=== PATIENT | female | born 1950 | race Caucasian/White ===

== ENCOUNTER → 2016-11-04 | Outpatient (CLI) | payer BC ==
[~2016-11-04] MED LIST: ACET65TA; BABY81CH; CAPT12.5; CARV6.25; FURO40TA2; No Historical Meds; ZOCO40TA
[2016-11-04 10:08] LABS: ALBUMIN 3.8 GM/DL (3.2-5.2); ALBUMIN/GLOBULIN RATIO 1.15 (1.00-1.93); BILIRUBIN,TOTAL 0.4 MG/DL (0.2-1.0); CREATININE FOR GFR 1.81 MG/DL (0.55-1.02); GLOMERULAR FILTRATION RATE 29.8 (>45); POTASSIUM SERUM 4.5 MEQ/L (3.5-5.1); TOTAL PROTEIN 7.1 GM/DL (6.4-8.2)
== END ==
LOC: M WUC 08:19
PROVIDERS: ATTEND Nurse Practitioner Family
DX: N18.3 Chronic kidney disease, stage 3 (moderate) (principal); E11.9 Type 2 diabetes mellitus without complications; E78.2 Mixed hyperlipidemia; E55.9 Vitamin D deficiency, unspecified

== ENCOUNTER → 2016-11-23 | Outpatient (CLI) | payer BC ==
--- NOTE | 2016-11-23 13:09 | REPMRS ---
Patient History The patient states she has not had a clinical breast exam in over a year. Family history of endometrial cancer in mother at age 50 or over. Digital Woman Screen Mammo: November 23, 2016 - Exam #: [id number] Bilateral CC and MLO view(s) were taken. Technologist: Anni Srinivasan, Technologist Prior study comparison: November 18, 2014, digital woman screen mammo performed at [facility]. June 08, 2012, digital woman screen mammo performed at [facility]. FINDINGS: There are scattered fibroglandular densities. There has been no change in the appearance of the mammogram from the prior studies. There is a mild amount of residual fibroglandular tissue which is fairly symmetric. There is no interval development of dominant mass, architectural distortion, or clustered microcalcification suggestive of malignancy. ASSESSMENT: BI-RADS/ACR category 1 mammogram. Negative. Recommendation Routine screening mammogram in 1 year (for women over age 40). This mammogram was interpreted with the aid of an FDA-approved computer-aided dectection system. Electronically Signed By: Sarwat Santos MD 11/23/16 [id number]
--- NOTE | 2016-11-25 11:26 | DEXA ---
AP SPINE L1 - L4 0.780 -3.3 -2.4 LT FEMUR TOTAL 0.804 -1.6 -0.8 RT FEMUR TOTAL 0.780 -1.8 -1.0 TOTAL BODY TOTAL OTHER DUAL FEMUR FRAX* ASSESSMENT Risk factors: Possible premature menopause. 10 year probability of fracture Major osteoporotic fracture 17.5 % Hip fracture 5.6 % COMMENTS: There is osteoporosis of the spine and hips. The increased density of the spine does represent a significant change. The decreased density of the left hip does represent a significant change. The decreased density of the right hip does not represent a significant change. The density of the spine has decreased 9.1% since the initial exam on 2011. The spine density has increased 7.9% since the most recent exam on 11/18/2014. The density of the left hip has decreased 5.4% since the initial exam on 2011. The density of the left hip has decreased 5.6% since the most recent exam on . The density of the right hip has decreased 4.5% since the initial exam on 2011. The density of the right hip has decreased 0.1% since the most recent exam on . FOLLOW-UP: Recommendation for the next bone density exam: 2 years. JOON
== END ==
LOC: M WHC 08:05
PROVIDERS: ATTEND Nurse Practitioner Family
DX: Z12.31 Encounter for screening mammogram for malignant neoplasm of breast (principal); Z13.820 Encounter for screening for osteoporosis; M85.80 Other specified disorders of bone density and structure, unspecified site
CPT/HCPCS: 77080; G0202

== ENCOUNTER → 2017-03-13 | Outpatient (CLI) | payer BC, MEDICARE ==
[2017-03-13 13:33] LABS: ALBUMIN/GLOBULIN RATIO 1.29 (1.00-1.93); BILIRUBIN,TOTAL 0.5 MG/DL (0.2-1.0); CALCIUM LEVEL 8.1 MG/DL (8.8-10.2); CREATININE FOR GFR 2.05 MG/DL (0.55-1.02); GLOMERULAR FILTRATION RATE 25.8 (>45); POTASSIUM SERUM 4.2 MEQ/L (3.5-5.1); TOTAL PROTEIN 7.1 GM/DL (6.4-8.2)
== END ==
LOC: M WUC 09:06
PROVIDERS: ATTEND Nurse Practitioner Family
DX: E11.9 Type 2 diabetes mellitus without complications (principal)

== ENCOUNTER → 2017-07-04 | Outpatient (REF) | payer MEDICARE ==
[2017-07-04 15:49] LABS: FOLATE 14.4 NG/ML
[2017-07-04 16:08] LABS: PERCENT SATURATION 26.8 % (13.2-45.0)
== END ==
LOC: M LAB REF 13:58
PROVIDERS: ATTEND Internal Medicine Nephrology
DX: D64.9 Anemia, unspecified (principal)

== ENCOUNTER → 2017-07-10 | Outpatient (CLI) | payer MEDICARE ==
[2017-07-10 13:42] LABS: ALBUMIN 4.1 GM/DL (3.2-5.2); ALBUMIN/GLOBULIN RATIO 1.21 (1.00-1.93); BILIRUBIN,TOTAL 0.4 MG/DL (0.2-1.0); CALCIUM LEVEL 9.1 MG/DL (8.8-10.2); CREATININE FOR GFR 1.91 MG/DL (0.55-1.02); POTASSIUM SERUM 4.2 MEQ/L (3.5-5.1); TOTAL PROTEIN 7.5 GM/DL (6.4-8.2)
== END ==
LOC: M WUC 08:45
PROVIDERS: ATTEND Nurse Practitioner Family
DX: E11.9 Type 2 diabetes mellitus without complications (principal)

== ENCOUNTER → 2017-12-07 | Outpatient (REF) | payer MEDICARE ==
[2017-12-07 13:02] LABS: ALBUMIN 3.7 GM/DL (3.2-5.2); ALBUMIN/GLOBULIN RATIO 1.03 (1.00-1.93); ALKALINE PHOSPHATASE 87 U/L (45-117); ALT/SGPT 22 U/L (12-78); ANION GAP 7 MEQ/L (8-16); AST/SGOT 15 U/L (7-37); BILIRUBIN,TOTAL 0.4 MG/DL (0.2-1.0); BLOOD UREA NITROGEN 45 MG/DL (7-18); CALCIUM LEVEL 8.9 MG/DL (8.8-10.2); CARBON DIOXIDE LEVEL 26 MEQ/L (21-32); CHLORIDE LEVEL 111 MEQ/L (98-107); CHOLESTEROL LEVEL 222 MG/DL (<200); CHOLESTEROL RISK RATIO 4.352 (<5); CREATININE FOR GFR 1.95 MG/DL (0.55-1.30); GLOMERULAR FILTRATION RATE 27.2 (>45); GLUCOSE, FASTING 106 MG/DL (70-100); HDL CHOLESTEROL 51 MG/DL (>40); NON-HDL-C 171 MG/DL; POTASSIUM SERUM 4.3 MEQ/L (3.5-5.1); SODIUM LEVEL 144 MEQ/L (136-145); TOTAL PROTEIN 7.3 GM/DL (6.4-8.2); TRIGLYCERIDES LEVEL 145 MG/DL (<150)
[2017-12-07 13:51] LABS: ESTIMATED AVERAGE GLUCOSE 103 MG/DL (60-110); HEMOGLOBIN A1c 5.2 %
== END ==
LOC: M SFHCPLAZ 07:56
DX: E11.9 Type 2 diabetes mellitus without complications (principal); E78.2 Mixed hyperlipidemia
CPT/HCPCS: 80053

== ENCOUNTER → 2018-12-20 | Outpatient (CLI) | payer MEDICARE, BC ==
[2018-12-20 13:32] LABS: ALBUMIN 3.7 GM/DL (3.2-5.2); BILIRUBIN,TOTAL 0.4 MG/DL (0.2-1.0); CALCIUM LEVEL 8.6 MG/DL (8.8-10.2); CREATININE FOR GFR 2.27 MG/DL (0.55-1.30); GLOMERULAR FILTRATION RATE 22.8 (>45); POTASSIUM SERUM 4.2 MEQ/L (3.5-5.1); TOTAL PROTEIN 7.5 GM/DL (6.4-8.2)
[2018-12-20 13:39] LABS: TOTAL 25(OH) VITAMIN D 22.6 NG/ML (30.0-100.0)
[2018-12-20 14:01] LABS: HEMOGLOBIN A1c 5.7 %
== END ==
LOC: M WUC 09:13
PROVIDERS: ATTEND Nurse Practitioner Family
DX: E11.9 Type 2 diabetes mellitus without complications (principal); N18.3 Chronic kidney disease, stage 3 (moderate); M81.0 Age-related osteoporosis without current pathological fracture

== ENCOUNTER → 2019-07-05 | Outpatient (CLI) | payer MEDICARE ==
[2019-07-05 10:23] LABS: CHOLESTEROL RISK RATIO 5.489 (<5)
== END ==
LOC: M WUC 08:20
PROVIDERS: ATTEND Nurse Practitioner Adult Health
DX: E78.2 Mixed hyperlipidemia (principal)

== ENCOUNTER → 2019-07-05 | Outpatient (CLI) | payer MEDICARE ==
[2019-07-05 10:02] LABS: ALBUMIN 3.7 GM/DL (3.2-5.2); BILIRUBIN,TOTAL 0.5 MG/DL (0.2-1.0); CALCIUM LEVEL 8.7 MG/DL (8.8-10.2); CREATININE FOR GFR 2.5 MG/DL (0.55-1.30); GLOMERULAR FILTRATION RATE 20.4 (>45); POTASSIUM SERUM 4.2 MEQ/L (3.5-5.1); TOTAL PROTEIN 7.3 GM/DL (6.4-8.2)
[2019-07-05 10:46] LABS: TOTAL 25(OH) VITAMIN D 24.1 NG/ML (30.0-100.0)
[2019-07-05 11:20] LABS: HEMOGLOBIN A1c 5.2 %
== END ==
LOC: M WUC 08:15
PROVIDERS: ATTEND Nurse Practitioner Family
DX: M81.0 Age-related osteoporosis without current pathological fracture (principal); E11.9 Type 2 diabetes mellitus without complications; N18.3 Chronic kidney disease, stage 3 (moderate); E78.2 Mixed hyperlipidemia

== ENCOUNTER → 2019-08-23 | Outpatient (CLI) | payer MEDICARE ==
--- NOTE | 2019-08-23 15:12 | REP ---
Bilateral upper extremity arterial and venous Doppler ultrasound: History: Vein mapping study. Chronic kidney disease stage IV. Findings: Incidental note is made of a 1.7 x 1.7 x 1.1 cm hypoechoic solid thyroid nodule on the right side. There is no evidence of upper extremity deep venous thrombosis. The right brachial artery has a somewhat high bifurcation into radial and ulnar branches. No other significant morphologic abnormality. Right upper extremity vein diameter chart: Upper humerus basilic 4.1 mm, cephalic 4.4 mm Lower humerus basilic 3.8 mm, cephalic 3.3 mm Upper forearm basilic 1.5 mm, cephalic 2.5 mm, Lower forearm basilic 0.8 mm, cephalic 2.6 mm Median cubital 3.8 mm Left upper extremity vein diameter chart: Upper humerus basilic 3.5 mm, cephalic 2.7 mm Lower humerus basilic 2.5 mm, cephalic 1.9 mm Upper forearm basilic 0.4 mm, cephalic 2.3 mm, Lower forearm basilic 0.7 mm, cephalic 1.6 mm Median cubital 1.8 mm Right upper extremity arterial Doppler velocity and size diameter chart: Axillary artery 82 cm/S, 5.6 mm Brachial artery 132 cm/S, 3.5 mm Radial artery 63 cm/S proximal 53 cm/S distal, 2.2 mm proximal to 0.4 mm distally Ulnar artery 65 cm/S proximal 54 cm/S distal, 3.0 mm proximal 1.6 mm distal Left upper extremity arterial Doppler velocity and size diameter chart: Axillary artery 63 cm/S, 5.4 mm Brachial artery 58 cm/S, 4.3 mm Radial artery 65 cm/S, 2.3 mm Ulnar artery 68 cm/S, 3.1 mm Electronically Signed by Zac Chatterjee MD 08/23/2019 03:04 P
== END ==
LOC: M RAD 10:55
PROVIDERS: ATTEND Internal Medicine Nephrology
DX: Z01.818 Encounter for other preprocedural examination (principal); N18.4 Chronic kidney disease, stage 4 (severe); I15.0 Renovascular hypertension; Q61.2 Polycystic kidney, adult type

== ENCOUNTER 2019-11-13 06:05 | Day surgery (SDC) | payer MEDICARE ==
[~2019-11-13] VITALS: Ht 157.5 cm; Wt 84.8 kg
[~2019-11-13 06:05] MED LIST changes: +ALLO100T PO; +AMLO5TAB6 PO; +ASPI81TA85 PO; +CALC1CAP31 PO; +CARV6.25 PO; +KLOR20TA42 PO; +LASI20TA3 PO; +LIDOCAINE 1% MDV 20ML VIAL SQ PRN; +LISI10TA4 PO; +MULTCAP PO; +NS 500 ML IV SCH
[2019-11-13] MEDS ORDERED: dexameTHASONE 10MG/1ML VIAL PRES.FREE (J1100 PER 1MG) ONE (06:06)
[2019-11-13] MEDS ORDERED: ROPIvacaine 0.5% 30 ML INJECTION (J2795 PER 1MG) ONE (06:06)
[2019-11-13] MEDS ORDERED: LIDOCAINE 1% MDV 20ML VIAL ONE (06:06)
[2019-11-13] MEDS ORDERED: HEPARIN SOD (PORCINE) 5000UNITS/ML VIAL (J1644 PER 1000UNITS) As Ordered ONE (06:35)
[2019-11-13] MEDS ORDERED: LIDOCAINE 1% MDV 20ML VIAL As Ordered ONE (06:36)
[2019-11-13] MEDS ORDERED: MIDAZOLAM INJ 2 MG/2 ML VIAL (J2250) As Ordered ONE ×2 (07:04→07:07)
[2019-11-13] MEDS ORDERED: fentaNYL 100 MCG/2 ML INJECTION (J3010) As Ordered ONE ×2 (07:04→07:07)
[2019-11-13] MEDS ORDERED: LIDOCAINE 2% 100MG/5ML SDV (FOR ANES.) As Ordered ONE (07:06)
[2019-11-13] MEDS ORDERED: propofoL 200 MG/20 ML VIAL As Ordered ONE (07:06)
[2019-11-13 07:12] LABS: INR 0.99; PROTHROMBIN TIME 12.8 SECONDS (11.8-14.0)
[2019-11-13 07:13] LABS: PARTIAL THROMBOPLASTIN TIME 34.5 SECONDS (25.0-38.4)
[2019-11-13] MEDS ORDERED: BUPIVACAINE/EPIN 0.5% 30 ML VIAL As Ordered ONE (07:16)
[2019-11-13] MEDS ORDERED: MIDAZOLAM INJ 2 MG/2 ML VIAL (J2250) IV ONE (08:00)
[2019-11-13] MEDS ORDERED: fentaNYL 100 MCG/2 ML INJECTION (J3010) IV ONE (08:00)
[2019-11-13] MEDS ORDERED: ePHEDrine SULFATE 25 MG/5 ML(5MG/ML) SYRINGE As Ordered ONE (08:12)
[2019-11-13] MEDS ORDERED: ONDANSETRON 4MG/2ML VIAL (J2405) As Ordered ONE (08:20)
[2019-11-13] MEDS ORDERED: ceFAZolin SOD 2 GM in IV 1 EA IV ONE (09:00)
[2019-11-13] MEDS ORDERED: OXYC1TAB23 PO (09:01)
--- NOTE | 2019-11-13 09:22 | ROOPDOC ---
[facility] Report Of Operation Report of Operation DATE OF PROCEDURE: 11/13/19 PREPROCEDURE DIAGNOSES: End-stage renal disease requiring access for dialysis POSTPROCEDURE DIAGNOSES: Same PROCEDURE: Right brachiocephalic AV fistula creation SURGEON: Beckie Lopez MD ANESTHESIA: MAC, R scalene nerve block, local INDICATION FOR PROCEDURE: This is a very pleasant 69-year-old patient with renal failure requiring access for dialysis. Risks benefits and alternatives to creation of a right brachiocephalic AV fistula were discussed with the patient after reviewing her vein mapping with her. All questions were thoroughly answered and the patient was agreeable to proceed. Informed consent was obtained. REPORT OF OPERATION: Patient was brought to the operating room in stable condition after right scalene nerve block was placed by our anesthesia colleagues in preop holding. Monitored anesthesia care and antibiotics were administered without consultation. Her right upper extremity was prepped and draped in a sterile fashion. A timeout was performed. Local anesthesia was administered to the skin and subcutaneous tissue 1 cm distal to the antecubital crease over the ulnar artery pulse and cephalic vein. This patient has a high bifurcation over the bicep of her brachial artery into the radial and ulnar artery, and the ulnar artery runs in the anatomic location of the brachial artery and will be used for this fistula creation. Bovie cautery was used to dissect down through the subcutaneous tissue. The basilic vein and cephalic vein were identified. Median cubital vein connecting the two was suture ligated and divided. The cephalic vein was skeletonized proximally and distally within the incision. We then dissected down to the ulnar artery and skeletonized this proximally and distally. Vesseloops were placed around the vessel. We then suture ligated and divided the distal aspect of the cephalic vein. A pot scissor was used to level and spatulate the end of the vein. We then passed sequential dilators up through the vein with the help of a bulldog clamp for hemostasis. We passed a 3 mm, 3.5 mm, 4 mm, 4.5 mm dilator sequentially without difficulty. We then irrigated the vein with heparinized saline. We secured the Vesseloops. A 5 mm arteriotomy was made and the vein was anastomosis to the artery and an end-to-side fashion with running 6-0 Prolene suture. Before the final sutures were placed, we flushed the inflow and outflow of the artery and vein. We irrigated the anastomosis with heparinized saline and her final sutures are placed. We restored flow to the vein and the inflow of the artery, and lastly we restored flow to the hand. Good hemostasis was noted. We irrigated with copious amounts of normal saline. The deep tissues were approximated with interrupted 2- 0 Vicryl sutures. The superficial fascia was approximated with a running 4-0 Vicryl suture. The skin was closed with a running subcuticular Monocryl suture. There was an excellent thrill in the fistula. The hand was warm pink and well perfused. There was a biphasic signal of the palmar arch and a strong radial pulse that was palpable. The wound was cleaned and dried. Mastisol and Steri- Strips were placed length of the wound. A dry gauze and Tegaderm were placed as a final dressing. She will have a right upper extremity sling status post nerve block until her sensory motor function returned. [facility]. She tolerated the anesthesia and the procedure well. ESTIMATED BLOOD LOSS: Approximately 10 mL. COMPLICATIONS: None. PLAN: It is okay for the patient to resume home medications and diet. A prescription for Percocet has been called in to the [facility] a target for her. No heavy lifting or strenuous exercise right upper extremity for 2 weeks and no lifting greater than 5 pounds until incision is completely healed. Showers are okay with no tub baths swimming or hot tubs for 2 weeks. Okay to remove the sling after sensory and motor function returned to the right upper extremity. We will see the patient back in 1 week to check her incision in her fistula. We appreciate the opportunity to participate in the care of this patient. BECKIE LOPEZ MD Nov 13, 2019 09:22
[2019-11-13 12:30] VITALS: BP 154/89
--- NOTE | 2019-11-13 13:00 | ECGEPIP ---
[facility] Test Date: 2019-11-13 Pat Name: BREN DEVLIN Department: Room: - Gender: Female Staff Educator: : 1950 Requested By: Johny Simpson Order Number: [id number] Reading MD: Tru Pichardo Measurements Intervals [place] Rate: 72 P: 25 NH: 207 QRS: -16 QRSD: 82 T: 5 QT: 382 QTc: 420 Interpretive Statements SINUS RHYTHM MODERATE VOLTAGE CRITERIA FOR LVH INFERIOR MYOCARDIAL INFARCTION, PROBABLY OLD No prior ECG available for comparison at the time of interpretation. Electronically Signed on 11-13-2019 13:00:36 EDT by Tru Pichardo
[2019-11-13] MEDS ORDERED: SEVOFLURANE INHAL SOLN 250 ML BTL As Ordered ONE (14:56)
[2019-11-13] MEDS ORDERED: DESFLURANE 240 ML INHALANT As Ordered ONE (14:56)
== END 2019-11-13 12:42 | disposition home or self-care (01) ==
LOC: M SDC 06:05
PROVIDERS: ATTEND Surgery Vascular Surgery
DX: N18.6 End stage renal disease (principal); I12.0 Hypertensive chronic kidney disease with stage 5 chronic kidney disease or end stage renal disease; E78.00 Pure hypercholesterolemia, unspecified; E11.22 Type 2 diabetes mellitus with diabetic chronic kidney disease; Q61.2 Polycystic kidney, adult type; M10.9 Gout, unspecified; Z88.1 Allergy status to other antibiotic agents; Z88.8 Allergy status to other drugs, medicaments and biological substances; Z79.899 Other long term (current) drug therapy; Z79.82 Long term (current) use of aspirin; Z90.710 Acquired absence of both cervix and uterus; Z78.0 Asymptomatic menopausal state; Z98.51 Tubal ligation status
CPT/HCPCS: 36415; 36821; 64450; 84132; 85610; 85730; 86850; 86900; 86901; 93005; J0690; J1100; J1644; J2250; J2405; J2795; J3010

== ENCOUNTER → 2020-01-14 | Outpatient (REF) | payer MEDICARE ==
[~2020-01-14] MED LIST changes: -LIDOCAINE 1% MDV 20ML VIAL SQ PRN; -NS 500 ML IV SCH; +OXYC1TAB23 PO
[2020-01-14 12:39] LABS: BILIRUBIN,TOTAL 0.4 MG/DL (0.2-1.0); CALCIUM LEVEL 9.4 MG/DL (8.8-10.2); CHOLESTEROL RISK RATIO 6.66 (<5); CREATININE FOR GFR 2.76 MG/DL (0.55-1.30); GLOMERULAR FILTRATION RATE 18.1 (>45); POTASSIUM SERUM 4.1 MEQ/L (3.5-5.1); TOTAL 25(OH) VITAMIN D 16.3 NG/ML (30.0-100.0); TOTAL PROTEIN 7.8 GM/DL (6.4-8.2)
[2020-01-14 14:18] LABS: HEMOGLOBIN A1c 5.7 %
== END ==
LOC: M SFHCPLAZ 08:06
PROVIDERS: ATTEND Physician Assistant
DX: N18.4 Chronic kidney disease, stage 4 (severe) (principal); Q61.3 Polycystic kidney, unspecified; E11.9 Type 2 diabetes mellitus without complications; E78.5 Hyperlipidemia, unspecified; E55.9 Vitamin D deficiency, unspecified

== ENCOUNTER → 2020-07-09 | Outpatient (REF) | payer MEDICARE ==
[~2020-07-09] MED LIST changes: +AMLO1TAB24 PO; -AMLO5TAB6 PO; -ASPI81TA85 PO; +ASPI81TA86 PO
[2020-07-09 11:11] LABS: HEMOGLOBIN A1c 5.6 %
[2020-07-09 11:18] LABS: CHOLESTEROL RISK RATIO 5.549 (<5); CREATININE FOR GFR 2.74 MG/DL (0.55-1.30); GLOMERULAR FILTRATION RATE 18.3 (>45); POTASSIUM SERUM 4.2 MEQ/L (3.5-5.1)
== END ==
LOC: M SFHCPLAZ 08:42
PROVIDERS: ATTEND Physician Assistant
DX: E78.2 Mixed hyperlipidemia (principal); N18.4 Chronic kidney disease, stage 4 (severe); E11.9 Type 2 diabetes mellitus without complications

== ENCOUNTER → 2021-02-16 | Outpatient (CLI) | payer MEDICARE ==
[~2021-02-16] MED LIST changes: +LISI10TA22 PO; -LISI10TA4 PO
--- NOTE | 2021-02-16 15:09 | DEXAMM ---
INDICATION: M81.0 OSTEOPOROSIS. COMPARISON: Most recent comparison study November 23, 2016. Most remote is June 08, 2012.. TECHNIQUE: Bone density was measured using dual-energy x-ray absorptionmetry (DEXA). FINDINGS: AP SPINE L1-L4 BMD 0.764 g/cm2 Young Adult T-Score -3.6 Age Matched Z-Score -2.0. LT FEMUR, TOTAL BMD 0.750 g/cm2 Young Adult T-Score -2.0 Age Matched Z-Score -0.6. LT NECK BMD 0.600 g/cm2 Young Adult T-Score -3.2 Age Matched Z-Score 2-1.5. RT FEMUR, TOTAL BMD 0.712 g/cm2 Young Adult T-Score -2.3 Age Matched Z-Score -0.9. RT NECK BMD 0.538 g/cm2 Young Adult T-Score -3.6 Age Matched Z-Score -1.9. IMPRESSION: There is osteoporosis of the spine. There is osteoporosis of the left hip. There is osteoporosis of the right hip. The density of the spine has decreased 9.2% since the initial exam on June 08, 2012. The density of the spine decreased 0.7% since most recent exam on November 23, 2016. The density of the left hip has decreased 11.8% since initial exam on June 08, 2012. The density of the left hip has decreased 6.7% since most recent exam on November 23, 2016. The density of the right hip has decreased 12.9% since the initial exam on June 08, 2012. The density of the right hip has decreased 8.7% since the most recent exam on November 23, 2016. FOLLOW-UP: Recommendation for the next bone density exam: 2 years. <Electronically signed by Jack Chatterjee > 02/16/21 0698
--- NOTE | 2021-02-17 16:24 | REPMRS ---
Patient History The patient states she has not had a clinical breast exam in over a year. Family history of endometrial cancer at age 50 or over in mother. Moderna vaccine 09/26/20 left arm. 10/26/20 left arm. Patient states no breast complaints today. Patient has signed MRS History Sheet. Digital Woman Screen Mammo: February 16, 2021 - Exam #: [id number] Bilateral CC and MLO view(s) were taken. Technologist: RT Parviz Prior study comparison: November 23, 2016, digital woman screen mammo performed at [facility]. November 18, 2014, digital woman screen mammo performed at [facility]. June 08, 2012, digital woman screen mammo performed at [facility]. FINDINGS: There are scattered fibroglandular densities. The Volpara volumetric breast density category is:B. There has been no change in the appearance of the mammogram from the prior studies. There is a mild amount of scattered fibroglandular density which is fairly symmetric. There is no interval development of dominant mass, architectural distortion, or grouped microcalcification suggestive of malignancy. 3-D tomosynthesis shows no additional findings. Assessment: BI-RADS/ACR category 1 mammogram. Negative Mammogram. Recommendation Routine screening mammogram of both breasts in 1 year (for women over age 40). This patient's [facility] Lifetime Breast Cancer Risk is estimated at 4.5 %. This mammogram was interpreted with the aid of an FDA-approved computer-aided dectection system. Electronically Signed By: Jack Chatterjee MD 02/17/21 [id number]
== END ==
LOC: M WHC 12:49
PROVIDERS: ATTEND Physician Assistant
DX: Z12.31 Encounter for screening mammogram for malignant neoplasm of breast (principal); M81.0 Age-related osteoporosis without current pathological fracture

== ENCOUNTER → 2021-07-14 | Outpatient (CLI) | payer MEDICARE ==
[~2021-07-14] MED LIST changes: -KLOR20TA42 PO; +POTA-141 PO
[2021-07-14 18:06] LABS: HEMATOCRIT 31.4 % (36.0-47.0); MEAN CORPUSCULAR HEMOGLOBIN 31.4 pg (27.0-33.0); MEAN CORPUSCULAR HGB CONC 31.8 g/dl (32.0-36.5); MEAN CORPUSCULAR VOLUME 98.7 fl (80.0-96.0); PLATELET COUNT, AUTOMATED 208 10^3/uL (150-450); RED BLOOD COUNT 3.18 10^6/uL (4.00-5.40); WHITE BLOOD COUNT 7.1 10^3/uL (4.0-10.0)
[2021-07-14 18:21] LABS: HEMOGLOBIN A1c 5.7 %
[2021-07-14 18:39] LABS: CALCIUM LEVEL 9.1 MG/DL (8.8-10.2); CREATININE FOR GFR 3.93 MG/DL (0.55-1.30); POTASSIUM SERUM 4.3 MEQ/L (3.5-5.1)
[2021-07-14 18:40] LABS: ALBUMIN 3.5 GM/DL (3.2-5.2); BILIRUBIN,TOTAL 0.3 MG/DL (0.2-1.0); CHOLESTEROL RISK RATIO 3.088 (<5); TOTAL PROTEIN 7.3 GM/DL (6.4-8.2)
[2021-07-14 18:43] LABS: PTH INTACT 175.1 PG/ML (18.5-88.0); TOTAL 25(OH) VITAMIN D 20.4 NG/ML (30.0-100.0)
== END ==
LOC: M PLALAB 13:59
PROVIDERS: ATTEND Physician Assistant Medical
DX: M81.0 Age-related osteoporosis without current pathological fracture (principal); N18.4 Chronic kidney disease, stage 4 (severe); E11.9 Type 2 diabetes mellitus without complications; E78.2 Mixed hyperlipidemia; K21.9 Gastro-esophageal reflux disease without esophagitis

== ENCOUNTER → 2021-11-24 | Outpatient (REF) | payer MEDICARE ==
[2021-11-24 17:09] LABS: PERCENT SATURATION 19.2 % (13.2-45.0)
== END ==
LOC: M LAB REF 16:45
PROVIDERS: ATTEND Internal Medicine Nephrology
DX: E61.1 Iron deficiency (principal); D63.1 Anemia in chronic kidney disease; N18.9 Chronic kidney disease, unspecified

== ENCOUNTER 2021-12-03 10:25 | Outpatient (CLI) | payer MEDICARE ==
[~2021-12-03] VITALS: Ht 157.5 cm; Wt 85.3 kg
[~2021-12-03 10:25] MED LIST changes: +ALBUTEROL SULFATE 2.5 MG/0.5 ML INH NEB SOLN INH PRN; +EPINEPHrine INJ 1 MG/ML 1ML AMP IM PRN; +diphenhydrAMINE 50MG/ML VIAL (J1200) IV PRN; +methylPREDNISolone 125MG 2ML VIAL IV PRN
[2021-12-03 10:30] VITALS: BP 180/80
[2021-12-03] MEDS ORDERED: NS 1,000 ML IV SCH (10:30)
[2021-12-03] MEDS ORDERED: FERRIC CARBOXYMALTOSE INJ 750 MG, VIAL MATE ADAPTER 1 EACH in NS 250 ML IV ONE (10:30)
[2021-12-03 12:55] VITALS: BP 137/92
== END 2021-12-03 12:55 | disposition home or self-care (01) ==
LOC: M INFU 10:25
PROVIDERS: ATTEND Internal Medicine Nephrology
DX: E61.1 Iron deficiency (principal); Z88.1 Allergy status to other antibiotic agents; Z88.8 Allergy status to other drugs, medicaments and biological substances
CPT/HCPCS: 96365; 96366; J1439

== ENCOUNTER 2021-12-10 10:10 | Outpatient (CLI) | payer MEDICARE ==
[~2021-12-10] VITALS: Ht 157.5 cm; Wt 85.0 kg
[2021-12-10 10:30] VITALS: BP 155/80
[2021-12-10] MEDS ORDERED: FERRIC CARBOXYMALTOSE INJ 750 MG, VIAL MATE ADAPTER 1 EACH in NS 250 ML IV ONE (10:30)
[2021-12-10] MEDS ORDERED: NS 1,000 ML IV SCH (10:30)
[2021-12-10 12:30] VITALS: BP 131/79
== END 2021-12-10 12:30 | disposition home or self-care (01) ==
LOC: M INFU 10:10
PROVIDERS: ATTEND Internal Medicine Nephrology
DX: E61.1 Iron deficiency (principal); Z88.1 Allergy status to other antibiotic agents; Z88.8 Allergy status to other drugs, medicaments and biological substances
CPT/HCPCS: 96365; 96366; J1439

== ENCOUNTER → 2022-05-24 | Outpatient (REF) | payer MEDICARE ==
[~2022-05-24] MED LIST changes: -ALBUTEROL SULFATE 2.5 MG/0.5 ML INH NEB SOLN INH PRN; -EPINEPHrine INJ 1 MG/ML 1ML AMP IM PRN; -diphenhydrAMINE 50MG/ML VIAL (J1200) IV PRN; -methylPREDNISolone 125MG 2ML VIAL IV PRN
[2022-05-24 19:21] LABS: PERCENT SATURATION 21.8 % (13.2-45.0)
== END ==
LOC: M LAB REF 17:19
PROVIDERS: ATTEND Internal Medicine Nephrology
DX: E61.1 Iron deficiency (principal)

== ENCOUNTER → 2022-07-01 | Outpatient (REF) | payer MEDICARE ==
[2022-07-01 19:48] LABS: HEPATITIS B SURFACE ANTIBODY POSITIVE (POSITIVE)
[2022-07-01 20:00] LABS: HEPATITIS B SURFACE ANTIGEN NEGATIVE (NEGATIVE)
[2022-07-01 20:21] LABS: HEPATITIS C VIRUS ABY INDEX 0.2 INDEX (<0.8)
[2022-07-01 20:22] LABS: HEPATITIS B CORE ANTIBODY IGM NEGATIVE (NEGATIVE)
== END ==
LOC: M LAB REF 17:07
PROVIDERS: ATTEND Internal Medicine Nephrology
DX: N18.5 Chronic kidney disease, stage 5 (principal)

== ENCOUNTER → 2023-02-08 | Outpatient (CLI) | payer MEDICARE ==
[2023-02-08 11:09] LABS: BASO % 0.4 % (0.0-1.0); EOS # 0.2 10^3/uL (0.0-0.5); EOS % 2.3 % (0.0-3.0); HEMATOCRIT 31.5 % (36.0-47.0); HEMOGLOBIN 10.3 g/dl (12.0-15.5); LYMPH # 1.5 10^3/uL (1.5-5.0); LYMPH % 21.6 % (24.0-44.0); MEAN CORPUSCULAR HEMOGLOBIN 33.9 pg (27.0-33.0); MEAN CORPUSCULAR HGB CONC 32.7 g/dl (32.0-36.5); MEAN CORPUSCULAR VOLUME 103.6 fl (80.0-96.0); MONO # 0.5 10^3/uL (0.0-0.8); MONO % 7.1 % (2.0-8.0); NEUTROPHILS # 4.8 10^3/uL (1.5-8.5); NEUTROPHILS % 68.3 % (36.0-66.0); PLATELET COUNT, AUTOMATED 161 10^3/uL (150-450); RED BLOOD COUNT 3.04 10^6/uL (4.00-5.40)
[2023-02-08 11:44] LABS: ALBUMIN 3.6 G/DL (3.2-5.2); BILIRUBIN,TOTAL 0.4 MG/DL (0.3-1.2); CALCIUM LEVEL 9.5 MG/DL (8.3-10.6); CHOLESTEROL RISK RATIO 2.86 (<5); CREATININE FOR GFR 7.63 MG/DL (0.55-1.30); GLOMERULAR FILTRATION RATE 5.6 (>39); HDL CHOLESTEROL 42.9 MG/DL (>40); LDL CHOLESTEROL 61.1 MG/DL (<100); NON-HDL-C 80.1 MG/DL; POTASSIUM SERUM 4.3 MMOL/L (3.5-5.1); PTH INTACT 375.1 PG/ML (18.5-88.0); TOTAL PROTEIN 6.9 G/DL (5.7-8.2)
[2023-02-08 11:45] LABS: TOTAL 25(OH) VITAMIN D 36.2 NG/ML (20.0-100.0)
== END ==
LOC: M WUC 08:07
PROVIDERS: ATTEND Physician Assistant Medical
DX: N25.81 Secondary hyperparathyroidism of renal origin (principal); E11.9 Type 2 diabetes mellitus without complications; I10 Essential (primary) hypertension; E78.2 Mixed hyperlipidemia

== ENCOUNTER → 2023-08-03 | Outpatient (CLI) | payer MEDICARE | LOC: M WHC 12:30 | PROVIDERS: ATTEND Physician Assistant Medical | DX: Z12.31 Encounter for screening mammogram for malignant neoplasm of breast (principal); M81.0 Age-related osteoporosis without current pathological fracture ==

== ENCOUNTER → 2024-01-09 | Outpatient (CLI) | payer MEDICARE ==
[2024-01-09 14:45] LABS: BASO % 0.5 % (0.0-1.0); EOS # 0.1 10^3/uL (0.0-0.5); EOS % 2.1 % (0.0-3.0); HEMATOCRIT 34.7 % (36.0-47.0); LYMPH # 1.1 10^3/uL (1.5-5.0); LYMPH % 17.8 % (24.0-44.0); MEAN CORPUSCULAR HGB CONC 31.7 g/dl (32.0-36.5); MEAN CORPUSCULAR VOLUME 107.1 fl (80.0-96.0); MONO # 0.5 10^3/uL (0.0-0.8); MONO % 8.4 % (2.0-8.0); NEUTROPHILS # 4.4 10^3/uL (1.5-8.5); NEUTROPHILS % 70.9 % (36.0-66.0); PLATELET COUNT, AUTOMATED 141 10^3/uL (150-450); RED BLOOD COUNT 3.24 10^6/uL (4.00-5.40); WHITE BLOOD COUNT 6.2 10^3/uL (4.0-10.0)
[2024-01-09 15:01] LABS: HEMOGLOBIN A1c 5.2 % (4.0-6.0)
[2024-01-09 15:16] LABS: TOTAL 25(OH) VITAMIN D 53.1 NG/ML (20.0-100.0)
[2024-01-09 15:27] LABS: ALBUMIN 3.2 G/DL (3.2-5.2); BILIRUBIN,TOTAL 0.3 MG/DL (0.3-1.2); CALCIUM LEVEL 8.7 MG/DL (8.3-10.6); CHOLESTEROL RISK RATIO 2.62 (<5); CREATININE FOR GFR 4.99 MG/DL (0.55-1.30); GLOMERULAR FILTRATION RATE 9.1 (>39); HDL CHOLESTEROL 40.4 MG/DL (>40); LDL CHOLESTEROL 48.4 MG/DL (<100); NON-HDL-C 65.6 MG/DL; TOTAL PROTEIN 6.4 G/DL (5.7-8.2)
== END ==
LOC: M PLALAB 09:30
PROVIDERS: ATTEND Physician Assistant Medical
DX: E78.2 Mixed hyperlipidemia (principal); E11.9 Type 2 diabetes mellitus without complications; K21.9 Gastro-esophageal reflux disease without esophagitis; I12.0 Hypertensive chronic kidney disease with stage 5 chronic kidney disease or end stage renal disease; N18.6 End stage renal disease; N25.81 Secondary hyperparathyroidism of renal origin; E55.9 Vitamin D deficiency, unspecified

== ENCOUNTER → 2024-08-08 | Outpatient (CLI) | payer MEDICARE ==
[2024-08-08 13:14] LABS: BASO % 0.6 % (0.0-1.0); EOS # 0.2 10^3/uL (0.0-0.5); EOS % 2.6 % (0.0-3.0); HEMATOCRIT 34.8 % (36.0-47.0); HEMOGLOBIN 11.1 g/dl (12.0-15.5); LYMPH # 1.2 10^3/uL (1.5-5.0); LYMPH % 17.9 % (24.0-44.0); MEAN CORPUSCULAR HEMOGLOBIN 34.4 pg (27.0-33.0); MEAN CORPUSCULAR HGB CONC 31.9 g/dl (32.0-36.5); MEAN CORPUSCULAR VOLUME 107.7 fl (80.0-96.0); MONO # 0.5 10^3/uL (0.0-0.8); MONO % 7.5 % (2.0-8.0); NEUTROPHILS # 4.7 10^3/uL (1.5-8.5); NEUTROPHILS % 70.9 % (36.0-66.0); PLATELET COUNT, AUTOMATED 115 10^3/uL (150-450); RED BLOOD COUNT 3.23 10^6/uL (4.00-5.40); WHITE BLOOD COUNT 6.6 10^3/uL (4.0-10.0)
[2024-08-08 13:15] LABS: ALBUMIN 3.5 G/DL (3.2-5.2); BILIRUBIN,TOTAL 0.5 MG/DL (0.3-1.2); CALCIUM LEVEL 9.1 MG/DL (8.3-10.6); CREATININE FOR GFR 5.23 MG/DL (0.55-1.30); GLOMERULAR FILTRATION RATE 8.6 (>39); PTH INTACT 518.5 PG/ML (18.5-88.0); TOTAL PROTEIN 7.1 G/DL (5.7-8.2)
[2024-08-08 13:17] LABS: TOTAL 25(OH) VITAMIN D 60.4 NG/ML (20.0-100.0)
[2024-08-08 13:31] LABS: HEMOGLOBIN A1c 5.4 % (4.0-6.0)
== END ==
LOC: M PLALAB 09:13
PROVIDERS: ATTEND Physician Assistant Medical
DX: N18.6 End stage renal disease (principal); E55.9 Vitamin D deficiency, unspecified; I10 Essential (primary) hypertension; E78.2 Mixed hyperlipidemia; Z79.899 Other long term (current) drug therapy

== ENCOUNTER → 2025-02-27 | Outpatient (CLI) | payer MEDICARE ==
[2025-02-27 13:19] LABS: ALT/SGPT 19.0 U/L (7.0-40); AST/SGOT 24.0 U/L (<34); CALCIUM LEVEL 9.1 MG/DL (8.3-10.6); CARBON DIOXIDE LEVEL 29.0 MMOL/L (20-31); CHLORIDE LEVEL 100.0 MMOL/L (98-107); CHOLESTEROL LEVEL 101.0 MG/DL (<200); CHOLESTEROL RISK RATIO 2.55 (<5); CREATININE FOR GFR 4.91 MG/DL (0.55-1.30); GLOMERULAR FILTRATION RATE 8.8 (>39); LDL CHOLESTEROL 42.2 MG/DL (<100); NON-HDL-C 61.4 MG/DL; POTASSIUM SERUM 3.9 MMOL/L (3.5-5.1); SODIUM LEVEL 142.0 MMOL/L (136-145); TRIGLYCERIDES LEVEL 96.0 MG/DL (<150)
[2025-02-27 13:37] LABS: ESTIMATED AVERAGE GLUCOSE 100.0 MG/DL (60-110)
== END ==
LOC: M PLALAB 09:52
PROVIDERS: ATTEND Physician Assistant Medical
DX: I10 Essential (primary) hypertension (principal); E78.2 Mixed hyperlipidemia; Z12.31 Encounter for screening mammogram for malignant neoplasm of breast; E11.9 Type 2 diabetes mellitus without complications

== ENCOUNTER → 2025-03-04 | Outpatient (CLI) | payer MEDICARE | LOC: M WHC 10:08 | PROVIDERS: ATTEND Physician Assistant Medical | DX: Z12.31 Encounter for screening mammogram for malignant neoplasm of breast (principal); R92.323 Mammographic fibroglandular density, bilateral breasts ==